=== PATIENT | male | born 1990 | race Hispanic/Latino ===

== ENCOUNTER 2022-04-03 18:54 | Emergency (ER) | payer OTHER ==
[2022-04-03] MEDS ORDERED: NALOXONE 0.4 MG/1 ML INJ IV ONE (19:02)
[2022-04-03] MEDS ORDERED: NALOXONE 0.4 MG/1 ML INJ IV PRN (19:02)
--- NOTE | 2022-04-03 19:02 | Emergency Department Report ---
ED General Adult HPI - General Chief complaint: Overdose Stated complaint: i thought it was an oxy Time Seen by Provider: 04/03/22 19:00 Source: patient, EMS (Verbal report received from emergency medical services. EMS documentation not available at time of chart dictation ) Mode of arrival: Stretcher Limitations: No Limitations - History of Present Illness Initial comments: The patient is a 31-year-old gentleman, presenting to the ER with EMS. Patient states that he took an oxycodone which she believes is simply an oxycodone for right-sided ankle pain. As per EMS, the patient was found in a car, blue, and not breathing. EMS gave 2 mg of Narcan in the field, with immediate resolution of respiratory distress. The patient denies physical pain at this time. He is not homicidal suicidal. He denies additional injuries and complaints. He is adamant that he was not trying to hurt himself. He is currently on the phone in the low bit anxious, but otherwise denies complaints -: This evening Consistency: now resolved Improves with: medication (Administration of Narcan) Worsens with: none Associated Symptoms: other (Right ankle pain) - Related Data Previous Rx's Medication Instructions Recorded Last Taken Type Naloxone HCl [Narcan Nasal [place]] 4 mg NS PRN PRN #1 spray 04/03/22 Unknown Rx Ondansetron [Zofran Odt] 4 mg PO Q8HR PRN #20 tab.rapdis 04/03/22 Unknown Rx Allergies Allergy/AdvReac Type Severity Reaction Status Date / Time No Known Allergies Allergy Verified 04/03/22 19:34 ED Review of Systems ROS: Stated complaint: OD Other details as noted in HPI Comment: All other systems reviewed and negative Musculoskeletal: other (Right ankle pain) ED Past Medical Hx - Medications Home Medications: Home Medications Medication Instructions Recorded Confirmed Last Taken Type Naloxone HCl [Narcan Nasal [place]] 4 mg NS PRN PRN #1 spray 04/03/22 Unknown Rx Ondansetron [Zofran Odt] 4 mg PO Q8HR PRN #20 tab.rapdis 04/03/22 Unknown Rx ED Physical Exam - General Limitations: No Limitations General appearance: alert, anxious - Head Head exam: Present: atraumatic, normocephalic - Eye Eye exam: Present: normal appearance, PERRL, EOMI. Absent: nystagmus - ENT ENT exam: Present: normal exam, normal orophraynx, mucous membranes moist, no rmal external ear exam - Neck Neck exam: Present: normal inspection, full ROM. Absent: tenderness, meningismus - Respiratory Respiratory exam: Present: normal lung sounds bilaterally. Absent: respiratory distress, wheezes, rales, rhonchi, stridor, decreased breath sounds - Cardiovascular Cardiovascular Exam: Present: normal rhythm, tachycardia, normal heart sounds. Absent: bradycardia, irregular rhythm, systolic murmur, diastolic murmur, rubs, gallop - GI/Abdominal GI/Abdominal exam: Present: soft. Absent: distended, tenderness, guarding, rebound, rigid, pulsatile mass - Rectal Rectal exam: Present: deferred - Extremities Exam Extremities exam: Present: normal inspection, full ROM, other (2+ pulses noted in the bilateral upper and lower extremities. There is no palpable cord. negative Homans sign. Muscular compartments are soft. The pelvis is stable.). Absent: pedal edema, calf tenderness - Back Exam Back exam: Present: normal inspection. Absent: tenderness, CVA tenderness (R), CVA tenderness (L), paraspinal tenderness, vertebral tenderness - Neurological Exam Neurological exam: Present: alert, oriented X3, other (No facial droop. Tongue midline. Extraocular movements intact bilaterally. Facial sensation intact to light touch in V1, V2, V3 distribution bilaterally. 5 and a 5 strength in 4 extremities. Sensation intact to light touch in 4 extremities.). Absent: motor sensory deficit - Psychiatric Psychiatric exam: Present: anxious. Absent: homicidal ideation, suicidal ideation - Skin Skin exam: Present: warm, dry, intact, normal color. Absent: rash ED Course Vital Signs 04/03/22 04/03/22 04/03/22 19:14 19:15 19:31 Temperature 98.0 F Pulse Rate 123 H 123 H 123 H Respiratory 13 17 11 L Rate Blood Pressure 130/94 Blood Pressure 119/96 [Left] O2 Sat by Pulse 95 95 98 Oximetry 04/03/22 04/03/22 04/03/22 19:41 19:45 20:01 Temperature Pulse Rate 125 H 120 H Respiratory 12 16 Rate Blood Pressure 141/80 135/85 Blood Pressure [Left] O2 Sat by Pulse 95 97 97 Oximetry 04/03/22 04/03/22 04/03/22 20:15 20:31 20:45 Temperature Pulse Rate 106 H 111 H 91 H Respiratory 11 L 15 14 Rate Blood Pressure 123/90 125/82 130/85 Blood Pressure [Left] O2 Sat by Pulse 97 98 97 Oximetry 04/03/22 04/03/22 04/03/22 21:01 21:15 21:31 Temperature Pulse Rate 92 H 96 H 91 H Respiratory 12 19 11 L Rate Blood Pressure 116/81 118/77 118/77 Blood Pressure [Left] O2 Sat by Pulse 97 96 Oximetry 04/03/22 04/03/22 04/03/22 21:45 22:01 22:15 Temperature Pulse Rate 84 81 76 Respiratory 15 16 13 Rate Blood Pressure 117/71 126/81 113/78 Blood Pressure [Left] O2 Sat by Pulse 96 95 92 Oximetry 04/03/22 04/03/22 04/03/22 22:31 22:45 23:01 Temperature Pulse Rate 75 88 76 Respiratory 12 16 15 Rate Blood Pressure 119/69 122/71 119/77 Blood Pressure [Left] O2 Sat by Pulse 96 98 98 Oximetry 04/03/22 23:05 Temperature Pulse Rate 76 Respiratory 15 Rate Blood Pressure Blood Pressure 119/77 [Left] O2 Sat by Pulse 98 Oximetry - Reevaluation(s) Reevaluation #1: 04/03/22 19:23 Differential diagnosis, including but not limited to: Opioid overdose, a ccidental Assessment and plan: 31-year-old gentleman, who is clinically sober at this time, with a GCS of 15, who is awake, alert, oriented, cooperative, not homicidal or suicidal presenting with resolved respiratory depression, after administration of Narcan. Very suspicious for accidental opioid overdose. Recommend observation in the emergency room for least 4 hours, placement of shelter monitor, obtain EKG, and appropriate laboratory studies. Patient does not meet criteria for 1013 hold or involuntary confinement. He denies urinary symptoms. Lower extremities are nontender. Reassess 04/03/22 19:27 Patient actively vomiting. Zofran ordered 04/03/22 20:24 Laboratory studies are essentially unremarkable. Heart rate improved, heart rate 105 bpm. Mild anion gap likely secondary to dehydration with nausea and vomiting. No signs of respiratory depression at this time. Care was transferred to the oncoming ER physician, Dr. Whalen, to complete period of observation, 4 to 5 hours. Should patient not require Narcan additionally, discharged with outpatient follow-up, as needed medications. 04/03/22 20:39 I personally gave this patient water, he is currently drinking without diff iculty. ED Medical Decision Making - Lab Data Result diagrams: 04/03/22 19:09 Vital Signs 04/03/22 04/03/22 04/03/22 19:14 19:15 19:31 Temperature 98.0 F Pulse Rate 123 H 123 H 123 H Respiratory 13 17 11 L Rate Blood Pressure 130/94 Blood Pressure 119/96 [Left] O2 Sat by Pulse 95 95 98 Oximetry 04/03/22 19:41 Temperature Pulse Rate Respiratory Rate Blood Pressure Blood Pressure [Left] O2 Sat by Pulse 95 Oximetry - EKG Data -: EKG Interpreted by Me EKG shows normal: sinus rhythm Rate: tachycardia - EKG Data When compared to previous EKG there are: previous EKG unavailable 04/03/22 19:22 The EKG is interpreted at 19: 48 Sinus rhythm, tachycardia, 122 bpm. Normal axis, high left ventricular voltage, QTC 4 6 8 ms, and motion artifact. QTC 4 6 8 ms. QT 328 ms. Abnormal EKG. Not a STEMI. No prior for comparison Critical care attestation.: If time is entered above; I have spent that time in minutes in the direct care of this critically ill patient, excluding procedure time. ED Disposition Clinical Impression: Opioid overdose Qualifiers: Encounter type: initial encounter Injury intent: accidental or unintentional Qualified Code(s): T40.2X1A - Poisoning by other opioids, accidental (unintentional), initial encounter Disposition: HOME / SELF CARE / HOMELESS Is pt being admited?: No Does the pt Need Aspirin: No Condition: Good Instructions: Opioid Overdose Additional Instructions: Recommend that patient avoid consumption of alcohol, tobacco, smoke products and opioids. Consumption of opioids may cause , disability, paralysis, and loss of quality of life. Patient may take Tylenol or Motrin [id number] as needed for physical pain. Use the Narcan as needed for opioid overdose symptoms. Follow-up with a primary care doctor or the health department within the next we ek. Please return to the emergency room right away with new pain, worsened pain, migration of pain, projectile vomiting, change in mental status, confusion, inability tolerate liquid feeds, new, worsened or different symptoms not present on the initial emergency room evaluation Prescriptions: Naloxone HCl [Narcan Nasal [place]] 4 mg NS PRN PRN #1 spray PRN Reason: Opioid Reversal Ondansetron [Zofran Odt] 4 mg PO Q8HR PRN #20 tab.rapdis PRN Reason: Nausea Referrals: [facility] [Outside] - 3-5 Days [facility] [Outside] - 3-5 Days
[2022-04-03] MEDS ORDERED: SODIUM CHLORIDE 0.9% 1000 ML 2,000 ML IV ONE (19:19)
[2022-04-03] MEDS ORDERED: ONDANSETRON 4 MG/2 ML INJ IV ONE (19:26)
[2022-04-03 20:17] LABS: Alanine Aminotransferase 29 units/L (7-56); Albumin 5.4 g/dL (3.9-5); BUN/Creatinine Ratio 13; Blood Urea Nitrogen 13 mg/dL (9-20); Calcium 9.5 mg/dL (8.4-10.2); Hemolysis Index 5
--- NOTE | 2022-04-03 22:55 | Event Note ---
Date: 04/03/22 Patient centimeters shift change for continuation of observation. I observe the patient for an additional 2 hours. Patient had no complications and required no further administration of Narcan. He is stable for discharge.
[2022-04-03 23:18] VITALS: BP 119/77
--- NOTE | 2022-04-04 09:41 | Electrocardiograph Report ---
[facility] Test Date: 2022-04-03 Test Time: 19:08:49 Pat Name: GWENDOLYN CANO Department: Room: Gender: M [employer]: ET : 1990 Requested By: FARHEEN DOWNS Order Number: [id number] Reading MD: Nato Flores Measurements Intervals [place] Rate: 122 P: 63 PA: 154 QRS: 80 QRSD: 87 T: 51 QT: 328 QTc: 468 Interpretive Statements Sinus tachycardia No previous ECG available for comparison Electronically Signed On 04-04-2022 9:40:51 EDT by Nato Flores
== END 2022-04-03 23:10 | disposition home or self-care (01) ==
LOC: ED 18:54
DX: T40.2X1A Poisoning by other opioids, accidental (unintentional), initial encounter (principal); M25.571 Pain in right ankle and joints of right foot; Z79.899 Other long term (current) drug therapy; Y92.89 Other specified places as the place of occurrence of the external cause
CPT/HCPCS: 36415; 80053; 93005; 96361; 96374; 99284; J2405; J7030; 80320; G0480